=== PATIENT | male | born 1960 | race Caucasian/White ===

== ENCOUNTER → 2016-11-21 | Outpatient (CLI) | payer OTHER ==
[~2016-11-21] MED LIST: FINA1TAB3; MULT-506 PO; ROPI1TAB PO; VITA400C15; VITA400C15 PO; [UNRECOGNIZED DRUG - MIXTURE] PO
--- NOTE | 2016-11-21 13:32 | DIAGNOSTIC IMAGING REPORT ---
KUB HISTORY: Z12.5 Encounter for prostate cancer screening . Flank pain with history of kidney stones. COMPARISON: B9 19/10/2015. FINDINGS: The bowel gas pattern is non-obstructive. There is no organomegaly. Left-sided nephrolithiasis redemonstrated measuring up to 9 mm. Vascular calcifications are seen within the pelvis. No definite ureteral calculi are seen. The previously described right-sided nephrolithiasis are not definitely seen. No pneumoperitoneum or pneumatosis. No fracture. Calcifications are seen adjacent to the bilateral hips. IMPRESSION: 1. Redemonstration of left-sided nephrolithiasis. 2. No definite right-sided nephrolithiasis or ureteral calculi identified. Electronically signed by: Danny Bermudez M.D. 11/21/2016 1:31 PM Dictated Date/Time: 11/21/2016 1:29 PM
== END | disposition home or self-care (01) ==
LOC: C.RAD 13:15
PROVIDERS: ATTEND Urology
DX: N20.0 Calculus of kidney (principal)

== ENCOUNTER → 2017-11-18 | Outpatient (CLI) | payer OTHER ==
--- NOTE | 2017-11-18 13:35 | DIAGNOSTIC IMAGING REPORT ---
KUB CLINICAL HISTORY: 57 years-old Male presenting with N20.0 Nephrolithiasis N20.1 Ureteric gdyhyD39.5. TECHNIQUE: Single supine view of the abdomen was obtained. COMPARISON: 11/21/2016. FINDINGS: Cholecystectomy clips noted. Nonobstructive bowel gas pattern. No gross pneumoperitoneum. Left nephrolithiasis involving the upper pole, interpolar region, and lower pole calyces as on prior exam. No radiographic evidence of right renal calculi or ureteral calculi. Stable distribution of pelvic phleboliths in the right hemipelvis. Atherosclerotic calcifications. Osseous structures normal. IMPRESSION: 1. Left nephrolithiasis. No radiographic evidence of right renal or ureteral calculi. Electronically signed by: Antonino Gómez M.D. 11/18/2017 1:34 PM Dictated Date/Time: 11/18/2017 1:32 PM
== END | disposition home or self-care (01) ==
LOC: C.RAD 13:20
PROVIDERS: ATTEND Urology
DX: Z12.5 Encounter for screening for malignant neoplasm of prostate (principal); N20.0 Calculus of kidney